=== PATIENT | male | born 1970 | race Caucasian/White ===

== ENCOUNTER 2018-10-31 10:31 | Emergency (ER) | payer BC ==
[2018-10-31 10:36] VITALS: BP 145/95
--- NOTE | 2018-10-31 10:38 | UC ---
Lower Extremity/Ankle HPI - HPI Summary HPI Summary: 48 yo male presents s/p fall. He tells me that last night he slipped going down steps outside. His left knee bent behind him and he twisted his left ankle. Did not hit head or have LOC. Was able to get to his feet and ambulate, but had pain in these areas. Today his pain is continued and is worse with weight bearing. He is currently ambulating with crutches. He took Soma and ibuprofen for his discomfort with minimal relief. Denies numbness or tingling - History of Current Complaint Chief Complaint: UCLowerExtremity Stated Complaint: L KNEE AND ANKLE Time Seen by Provider: 10/31/18 10:38 Hx Obtained From: Patient Onset/Duration: Sudden Onset Severity Initially: Moderate Severity Currently: Moderate Pain Intensity: 5 Pain Scale Used: 0-10 Numeric Aggravating Factor(s): Standing, Ambulation Able to Bear Weight: Yes - Allergies/Home Medications Allergies/Adverse Reactions: Allergies Allergy/AdvReac Type Severity Reaction Status Date / Time No Known Allergies Allergy Verified 10/31/18 10:37 PMH/Surg Hx/FS Hx/Imm Hx - Additional Past Medical History Additional PMH: None - Surgical History Surgical History: None - Family History Known Family History: Positive: Non-Contributory - Social History Occupation: Employed Full-time Lives: With Family Alcohol Use: None Substance Use Type: None Smoking Status (MU): Never Smoked Tobacco Review of Systems All Other Systems Reviewed And Are Negative: Yes Constitutional: Positive: Negative Skin: Positive: Negative Respiratory: Positive: Negative Cardiovascular: Positive: Negative Neurovascular: Positive: Negative Musculoskeletal: Positive: Other: - Left knee and ankle pain Neurological: Positive: Negative Psychological: Positive: Negative Physical Exam - Summary Physical Exam Summary: GENERAL: NAD. WDWN. No pain distress. SKIN: No rashes, sores, lesions, or open wounds. CHEST: No accessory muscle use. Breathing comfortably and in no distress. CV: . Pulses intact popliteal, PT, and DP. Cap refill <2seconds MSK: LEFT KNEE: Moderate TTP over medial aspect. Pain with extension, but FROM. No edema or obvious bony deformities. No patella apprehension. Negative Elise , A/P drawer, and varus/valgus stress. LEFT ANKLE: Moderate TTP overlying lateral malleolus. FROM, but worse with plantar flexion and inversion. Mild edema overlying lateral malleolus. Negative talar tilt. No increased laxity. LEFT FOOT: Mild TTP about midfoot. No 5th MTP pain. NEURO: Alert. Sensations intact and symmetric B/L LEs PSYCH: Age appropriate behavior. Triage Information Reviewed: Yes Vital Signs: Initial Vital Signs Temp 98.2 F 10/31/18 10:34 Pulse 81 10/31/18 10:34 Resp 17 10/31/18 10:34 BP 145/95 10/31/18 10:34 Pulse Ox 100 10/31/18 10:34 Vital Signs Reviewed: Yes Lower Extremity Course/Dx - Course Course Of Treatment: XR knee: 4 views of left knee was reviewed. There is no fracture or dislocation. No other bone or. joint abnormality is identified. XR ankle: IMPRESSION: No fracture of the left ankle is noted. XR foot: IMPRESSION: No fracture of the left foot is noted. Discussed results with pt. Advised to RICE and continue using crutches. Advised to f/u with Orthopedics regarding his knee pain if this continue to be painful or if he feels any instability with weight bearing. - Differential Dx/Diagnosis Provider Diagnosis: Fall, Knee sprain, Ankle sprain Discharge - Sign-Out/Discharge Documenting (check all that apply): Patient Departure All imaging exams completed and their final reports reviewed: Yes - Discharge Plan Condition: Stable Disposition: HOME Patient Education Materials: Ankle Sprain (ED), Knee Sprain (DC) Referrals: María Mcguire MD [Primary Care Provider] - Meseret Ordoñez MD [Medical Doctor] - If Needed Additional Instructions: If you develop a fever, shortness of breath, chest pain, new or worsening symptoms - please call your PCP or go to the ED. Your blood pressure was high at todays visit. Please see your primary provider within 4 weeks for recheck and re-evaluation. 1) Rest, Ice, and elevate as much as possible 2) Use your crutches as needed 3) Please call Orthopedics at the number below to schedule a follow up appointment if you develop knee swelling or feelings that it is unstable for further evaluation - Billing Disposition and Condition Condition: STABLE Disposition: Home - Attestation Statements Provider Attestation: Per institutional requirements, I have reviewed the chart, however, I was not consulted specifically or made aware of this patient by the midlevel provider. I did not personally evaluate, interact with , or disposition this patient.
== END 2018-10-31 11:45 | disposition home or self-care (01) ==
LOC: UCEAST 10:31
DX: S83.92XA Sprain of unspecified site of left knee, initial encounter (principal); S93.402A Sprain of unspecified ligament of left ankle, initial encounter; X50.1XXA Overexertion from prolonged static or awkward postures, initial encounter; W01.0XXA Fall on same level from slipping, tripping and stumbling without subsequent striking against object, initial encounter; Y92.9 Unspecified place or not applicable
CPT/HCPCS: 99212; G0463

== ENCOUNTER 2019-01-24 19:36 | Emergency (ER) | payer BC ==
[2019-01-24] MEDS ORDERED: Aspirin 81 mg CHEW TAB* 81 MG TAB.CHEW PO ONE (21:44)
--- NOTE | 2019-01-24 21:47 | ED ---
HPI Chest Pain - HPI Summary HPI Summary: Pt is a 48 y/o M presenting to the ED with a chief complaint of chest pain onset yesterday. It has been persistent throughout today, and it radiates to his L arm. The pt also reports high blood pressure onset yesterday. He denies a hx of panic attacks, anxiety, or smoking. - History of Current Complaint Chief Complaint: EDChestPainROMI Time Seen by Provider: 01/24/19 21:09 Hx Obtained From: Patient Onset/Duration: Started Days Ago, Still Present Timing: Constant, Lasting Days Initial Severity: Mild Current Severity: Mild Pain Intensity: 2 Pain Scale Used: 0-10 Numeric Chest Pain Location: Left Anterior Chest Pain Radiates: Yes Chest Pain Radiates To:: Arm - left Aggravating Factor(s): Nothing Alleviating Factor(s): Nothing Associated Signs and Symptoms: Positive: Other: - high blood pressure - Allergy/Home Medications Allergies/Adverse Reactions: Allergies Allergy/AdvReac Type Severity Reaction Status Date / Time No Known Allergies Allergy Verified 10/31/18 10:37 Home Medications: Home Medications NK [No Home Medications Reported] 01/24/19 [History Confirmed 01/24/19] PMH/Surg Hx/FS Hx/Imm Hx Previously Healthy: Yes Endocrine/Hematology History: Denies: Hx Diabetes Cardiovascular History: Denies: Hx Hypertension, Hx Pacemaker/ICD History: Denies: Hx Renal Disease Sensory History: Denies: Hx Hearing Aid Psychiatric History: Denies: Hx Panic Disorder Infectious Disease History: No Infectious Disease History: Denies: History Other Infectious Disease, Traveled Outside the [place] in Last 30 Days - Family History Known Family History: Negative: Renal Disease - Social History Alcohol Use: Weekly Hx Substance Use: No Substance Use Type: Reports: None Hx Tobacco Use: No Smoking Status (MU): Never Smoked Tobacco Review of Systems Negative: Fever Positive: Chest Pain, Other - high blood pressure All Other Systems Reviewed And Are Negative: Yes Physical Exam - Summary Physical Exam Summary: VITAL SIGNS: Reviewed. GENERAL: Patient is a well-developed and nourished male who is lying comfortable in the stretcher. Patient is not in any acute respiratory distress. HEAD AND FACE: No signs of trauma. No ecchymosis, hematomas or skull depressions. No sinus tenderness. EYES: PERRLA, EOMI x 2, No injected conjunctiva, no nystagmus. EARS: Hearing grossly intact. Ear canals and tympanic membranes are within normal limits. MOUTH: Oropharynx within normal limits. NECK: Supple, trachea is midline, no adenopathy, no JVD, no carotid bruit, no c- spine tenderness, neck with full ROM. CHEST: Symmetric, no tenderness at palpation LUNGS: Clear to auscultation bilaterally. No wheezing or crackles. CVS: Regular rate and rhythm, S1 and S2 present, no murmurs or gallops appreciated. ABDOMEN: Soft, non-tender. No signs of distention. No rebound no guarding, and no masses palpated. Bowel sounds are normal. EXTREMITIES: FROM in all major joints, no edema, no cyanosis or clubbing. NEURO: Alert and oriented x 3. No acute neurological deficits. Speech is normal and follows commands. SKIN: Dry and warm Triage Information Reviewed: Yes Vital Signs On Initial Exam: Initial Vitals Temp Pulse Resp BP Pulse Ox 98.1 F 68 18 189/109 100 01/24/19 19:39 01/24/19 19:39 01/24/19 19:39 01/24/19 19:39 01/24/19 19:39 Vital Signs Reviewed: Yes Diagnostics - Vital Signs Vital Signs Temp Pulse Resp BP Pulse Ox 01/24/19 21:26 64 16 136/87 98 01/24/19 21:00 62 15 97 01/24/19 20:56 61 16 146/91 98 01/24/19 20:54 57 97 01/24/19 19:39 98.1 F 68 18 189/109 100 - Laboratory Result Diagrams: 01/24/19 21:55 01/24/19 21:55 Lab Statement: Any lab studies that have been ordered have been reviewed, and results considered in the medical decision making process. - EKG 1953 Cardiac Rate: NL - 63bpm EKG Rhythm: Sinus Rhythm ST Segment: Normal Ectopy: None Chest Pain Course/Dx - Course Course Of Treatment: Pt is a 48 y/o M presenting to the ED with a chief complaint of chest pain onset yesterday. It has been persistent throughout today , and it radiates to his L arm. The pt also reports high blood pressure onset yesterday. He denies a hx of panic attacks, anxiety, or smoking. His troponin is 0.00 and he will be sent home with a dx of atypical chest pain and instructions to get a cardiac stress test done as an outpatient. The pt is agreeable with this plan. - Diagnoses Provider Diagnoses: Atypical chest pain Discharge - Sign-Out/Discharge Documenting (check all that apply): Patient Departure Patient Received Moderate/Deep Sedation with Procedure: No - Discharge Plan Condition: Stable Disposition: HOME Referrals: María Mcguire MD [Primary Care Provider] - Additional Instructions: Please get a cardiac stress test done as an outpatient as soon as possible. Return to the emergency department with any new or worsening symptoms. - Attestation Statements Document Initiated by Scribe: Yes Documenting Scribe: Bridgett Castillo Provider For Whom Scribe is Documenting (Include Credential): Kely James MD. Scribe Attestation: Bridgett Cottrell, scribed for Kely James MD. on 01/24/19 at 2229. Status of Scribe Document: Ready
[2019-01-24 22:05] LABS: ABS Basophils 0 10^3/ul (0-0.2); ABS Eosinophils 0.2 10^3/ul (0-0.6); ABS Lymphocytes 2.6 10^3/ul (1.0-4.8); ABS Monocytes 0.7 10^3/ul (0-0.8); ABS Neutrophils 4.5 10^3/ul (1.5-7.7); ABS Nucleated RBC 0 10^3/ul; Eosinophil % 2.2 %; Hematocrit 43 % (36-46); Hemoglobin 14.8 g/dL (14.0-18.0); Lymphocyte % 32.9 %; Mean Corpuscular HGB Conc 35 g/dL (31-36); Mean Corpuscular Hemoglobin 32 pg (27-31); Mean Corpuscular Volume 93 fL (80-94); Mean Platelet Volume 7.3 fL (7.4-10.4); Nucleated Red Blood Cells % 0; Platelet Count 308 10^3/uL (150-450); Red Blood Count 4.57 10^6 /uL (4.18-5.48); Red Cell Distribution Width 12 % (10.5-15)
[2019-01-24 22:18] LABS: Albumin 4.1 g/dL (3.2-5.2); Albumin/Globulin Ratio 1.7 (1-3); EGFR African American 136.6 (>60); EGFR Non-African American 112.9 (>60); Globulin 2.4 g/dL (2-4); Potassium 3.7 mmol/L (3.5-5.0); Total Bilirubin 0.7 mg/dL (0.2-1.0); Total Protein 6.5 g/dL (6.4-8.9)
[2019-01-24 22:36] LABS: Activated Partial Thrombo Time 33.2 seconds (26.0-36.3); INR 0.96 (0.77-1.02)
[2019-01-24 22:40] VITALS: BP 159/98
== END 2019-01-24 22:39 | disposition home or self-care (01) ==
LOC: ED 19:36
DX: R07.89 Other chest pain (principal)
CPT/HCPCS: 36415; 80053; 83735; 84484; 85025; 85610; 85730; 93005; 99283; A9270-GY